=== PATIENT | female | born 1985 | race Caucasian/White ===

== ENCOUNTER 2018-06-17 09:43 | Emergency (ER) | payer OTHER ==
[2018-06-17 10:12] VITALS: O2SAT 97
[2018-06-17] MEDS ORDERED: BENADRYL 50 MG/ML IV ONE (10:19)
[2018-06-17] MEDS ORDERED: Reglan 10 MG/2 ML IV ONE (10:19)
--- NOTE | 2018-06-17 10:26 | ERPHSYRPT ---
- History of Present Illness Time Seen by Provider: 06/17/18 10:14 Source: patient Exam Limitations: no limitations Patient Subjective Stated Complaint: headache for one week. hx migraines but states this pain is different. states is a pressure pain in the back of her head that radiates down neck. Triage Nursing Assessment: ambulated to room per self. skin w/d, color normal, resp nonlabored. lights off in room for patient comfort. Physician History: 33-year-old white female with history of migraines, rheumatoid arthritis, arrives with complaint of a headache symptoms for one week headache behind her eyes and the posterior head. Patient apparently has been seen by local eye clinic in [place], she was also seen by Dr. Aguilar in [place] (yard caller) She states that she was scheduled with a neurologist and set up for an MRI for next Wednesday. She states she was nauseous patient not having any nausea states had a fever at home. Past medical history includes migraines, rheumatoid arthritis Past surgical history includes hysterectomy and tubal ligation Patient chronically takes hydrocodone inspect report shows hydrocodone 7.5/325 # 30 prescribed regularly by in [place], Patient's family doctor is in [place]. Timing/Duration: week(s) (1 week) Severity: moderate Modifying Factors: Improves With: nothing Associated Symptoms: fever (states she had a fever at home), headaches, No nausea, No vomiting, No abdominal pain, No shortness of breath, No heartburn, No diaphoresis, No cough, No chills, No chest pain, No loss of appetite, No malaise, No rash, No syncope, No seizure (She see ying huizar), No weakness Allergies/Adverse Reactions: valacyclovir HCl [From Valtrex] Allergy (Verified 06/17/18 10:13) Home Medications: Hydrocodone/APAP 7.5/750 [Vicodin Es] 1 udtab PO Q4-6HPRN PRN 04/17/12 [History] Gabapentin 300 mg PO TID 06/17/18 [History] Meloxicam 7.5 mg [Mobic 7.5 MG] 7.5 mg PO DAILY 06/17/18 [History] Ondansetron 8 mg Odt [Ondansetron Odt 8 mg] 8 mg PO TIDPRN 06/17/18 [ History] Hx Tetanus, Diphtheria Vaccination/Date Given: No (UP TO DATE) Hx Influenza Vaccination/Date Given: No Hx Pneumococcal Vaccination/Date Given: No - Review of Systems Constitutional: Fever (patient states fever at home), No Chills, No Fatigue, No Lethargy, No Malaise, No Night Sweats, No Weakness, No Weight Loss Eyes: Photophobia, No Discharge, No Eye Pain, No Eye Redness, No Itchy, No Tearing, No Vision Changes, No Double Vision (she does have electrolyt), No Foreign Body Sensation Ears, Nose, & Throat: No Symptoms Respiratory: No Cough, No Dyspnea Cardiac: No Chest Pain, No Edema, No Syncope Abdominal/Gastrointestinal: No Abdominal Pain, No Nausea, No Vomiting, No Diarrhea Genitourinary Symptoms: No Dysuria Musculoskeletal: No Back Pain, No Neck Pain Skin: No Symptoms, No Rash Neurological: Headache, No Dizziness, No Focal Weakness, No Gait Changes, No Irritability, No Lethargy, No Paralysis, No Parasthesia Psychological: No Symptoms Endocrine: No Symptoms All Other Systems: Reviewed and Negative - Past Medical History Pertinent Past Medical History: Yes Neurological History: Migraines ENT History: Other Musculoskeletal History: Rheumatoid Arthritis - Past Surgical History Past Surgical History: Yes Gastrointestinal: Cholecystectomy Female Surgical History: Hysterectomy, Tubal Ligation, Other - Social History Smoking Status: Never smoker How long have you smoked: 2 Exposure to second hand smoke: Yes Drug Use: none Patient Lives Alone: No - Female History Hx Now: No - Nursing Vital Signs Nursing Vital Signs: Initial Vital Signs Temperature 98.5 F 06/17/18 09:54 Pulse Rate 90 06/17/18 09:54 Respiratory Rate 16 06/17/18 09:54 Blood Pressure 137/90 06/17/18 09:54 O2 Sat by Pulse Oximetry 97 06/17/18 09:54 Pain Scale Pain Intensity 7 - Physical Exam General Appearance: mild distress, alert Eye Exam: PERRL/EOMI, eyes nml inspection, photophobia, other (fundi are unremarkable) Ears, Nose, Throat Exam: normal ENT inspection, TMs normal, pharynx normal, moist mucous membranes Neck Exam: normal inspection, non-tender, supple, full range of motion Respiratory Exam: normal breath sounds, lungs clear, No respiratory distress Cardiovascular Exam: regular rate/rhythm, normal heart sounds, normal peripheral pulses, capillary refill <2 sec Gastrointestinal/Abdomen Exam: soft, normal bowel sounds, No tenderness, No mass Back Exam: normal inspection, normal range of motion, No CVA tenderness, No vertebral tenderness Extremity Exam: normal inspection, normal range of motion, pelvis stable Neurologic Exam: alert, oriented x 3, cooperative, radio installer automobile II-XII nml as tested, normal mood/affect, nml cerebellar function, nml station & gait, sensation nml, No motor deficits Skin Exam: normal color, warm, dry, No rash Lymphatic Exam: No adenopathy SpO2 Interpretation: normal (97%) SpO2: 97 Oxygen Delivery: Room Air - Course Nursing assessment & vital signs reviewed: Yes - CT Exams Head CT Interpretation: Discussed w/radiologist (stable normal CT head without contrast exam) Ordered Tests: Active Orders 24 hr Category Date Time Status IV Insertion STAT Care 06/17/18 10:19 Active HEAD WITHOUT CONTRAST [CT] Stat Exams 06/17/18 10:20 Completed CBC W DIFF Stat Lab 06/17/18 10:35 Completed CMP Stat Lab 06/17/18 10:35 Completed Erythrocyte Sedimentation Rate Stat Lab 06/17/18 10:35 Completed Medication Summary Generic Name Dose Route Start Last Admin Trade Name Freq PRN Reason Stop Dose Admin Sodium Chloride 1,000 mls @ 100 mls/hr 06/17/18 10:30 06/17/18 10:45 Sodium Chloride 0.9% 1000 Ml IV 07/17/18 10:29 100 mls/hr .Q10H THOMAS Administration Discontinued Medications Generic Name Dose Route Start Last Admin Trade Name Freq PRN Reason Stop Dose Admin Diphenhydramine HCl 25 mg 06/17/18 10:19 06/17/18 10:45 Benadryl 50 Mg/Ml IV 06/17/18 10:20 25 mg STAT ONE Administration Diphenhydramine HCl Confirm 06/17/18 10:40 Benadryl 50 Mg/Ml Administered 06/17/18 10:41 Dose 50 mg .ROUTE .STK-MED ONE Metoclopramide HCl 10 mg 06/17/18 10:19 06/17/18 10:45 Reglan 10 Mg/2 Ml IV 06/17/18 10:20 10 mg STAT ONE Administration Metoclopramide HCl Confirm 06/17/18 10:41 Reglan 10 Mg/2 Ml Administered 06/17/18 10:42 Dose 10 mg .ROUTE .STK-MED ONE Lab/Rad Data: Laboratory Result Diagrams 06/17/18 10:35 06/17/18 10:35 Laboratory Results 06/17/18 06/17/18 Range/Units 10:35 10:35 WBC 3.9 L (4.0-10.5) K/mm3 RBC 5.24 (4.1-5.4) M/mm3 Hgb 15.0 (12.0-16.0) gm/dl Hct 46.6 (35-47) % MCV 88.9 (78-100) fl MCH 28.6 (26-32) pg MCHC 32.2 (32-36) g/dl RDW 13.0 (11.5-14.0) % Plt Count 189 (150-450) K/mm3 MPV 10.4 H (6-9.5) fl Gran % 72.2 H (36.0-66.0) % Eos # (Auto) 0 (0-0.5) Absolute Lymphs (auto) 0.66 L (1.0-4.6) Absolute Monos (auto) 0.42 (0.0-1.3) Lymphocytes % 16.8 L (24.0-44.0) % Monocytes % 10.7 (0.0-12.0) % Eosinophils % 0.0 (0.00-5.0) % Basophils % 0.3 (0.0-0.4) % Absolute Granulocytes 2.84 (1.4-6.9) Basophils # 0.01 (0-0.4) ESR 24 H (0-20) mm/hr Sodium 141 (137-145) mmol/L Potassium 4.0 (3.5-5.1) mmol/L Chloride 105 (98-107) mmol/L Carbon Dioxide 28 (22-30) mmol/L Anion Gap 12.0 (5-15) MEQ/L BUN 8 (7-17) mg/dL Creatinine 0.65 (0.52-1.04) mg/dL Estimated GFR > 60.0 ML/MIN Glucose 100 (74-106) mg/dL Calcium 9.2 (8.4-10.2) mg/dL Total Bilirubin 0.50 (0.2-1.3) mg/dL AST 24 (14-36) U/L ALT 22 (0-35) U/L Alkaline Phosphatase 97 (38-126) U/L Serum Total Protein 7.7 (6.3-8.2) g/dL Albumin 4.4 (3.5-5.0) g/dL - Progress Progress: improved Progress Note: 06/17/18 10:26 33-year-old white female with history of migraines arrives with complaint of a headache for a week Patient apparently has been seen by an eye clinic in [facility], she has also been seen by an yard caller in [facility] for the same complaint apparently he had noticed papilledema and had arranged for her to have a MRI on Wednesday as well as a neurology consult. Patient continues to complain of pain she does receive chronic prescription of hydrocodone 7.5/325 from a physician in [facility]. We'll go ahead and obtain CBC CMP and sedimentation rate head CT. Will go ahead and give patient Reglan 10 mg Benadryl 25 mg IV and normal saline at 100 mL per hour. . 06/17/18 11:25 Patient feeling better after IV Benadryl, Reglan and normal saline. Not completely pain-free but feels much better think she can go home. Patient's CBC is normal CMP normal head CT normal. Sedimentation rate slightly elevated at 24. Normal is 20 Patient afebrile vitals are stable. Will discharge patient. Patient has an appointment for a MRI Wednesday she has an appointment for neurologist. Will discharge. - Departure Time of Disposition: 11:27 Departure Disposition: Home Clinical Impression: Migraine headache Qualifiers: Migraine type: unspecified Status migrainosus presence: without status migrainosus Intractability: not intractable Qualified Code(s): G43.909 - Migraine, unspecified, not intractable, without status migrainosus Condition: Fair Critical Care Time: No Referrals: ISIDORO MARTE PA [Primary Care Provider] - Instructions: Headache, Adult (DC) Additional Instructions: Return home. Rest in a dark quiet room. Medications as prescribed by your family doctor and/or rip saw operator. Follow-up with MRI and neurologist as previously arranged. Return for acute distress or for severe symptoms.
[2018-06-17] MEDS ORDERED: Sodium Chloride 0.9% 1000 ML 1,000 ML IV SCH (10:30)
[2018-06-17] MEDS ORDERED: BENADRYL 50 MG/ML ONE (10:40)
[2018-06-17] MEDS ORDERED: Reglan 10 MG/2 ML ONE (10:41)
[2018-06-17] MEDS ORDERED: Sodium Chloride 0.9% 1000 ML 1,000 ML ONE (10:41)
[2018-06-17 10:53] LABS: BASOPHIL % 0.3 % (0.0-0.4); Basophil (Absolute #) 0.01 (0-0.4); Eosinophil (Absolute #) 0 (0-0.5); Granulocytes % 72.2 % (36.0-66.0); Hematocrit 46.6 % (35-47); Lymphocyte (Absolute #) 0.66 (1.0-4.6); Lymphocytes % 16.8 % (24.0-44.0); Mean Cell Volume 88.9 fl (78-100); Mean Corpuscular Hemoglobin 28.6 pg (26-32); Mean Corpuscular Hgb Concent. 32.2 g/dl (32-36); Mean Platelet Volume 10.4 fl (6-9.5); Monocyte (Absolute #) 0.42 (0.0-1.3); Monocytes % 10.7 % (0.0-12.0); Platelet Count 189 K/mm3 (150-450); Red Blood Count 5.24 M/mm3 (4.1-5.4); White Blood Count 3.9 K/mm3 (4.0-10.5)
--- NOTE | 2018-06-17 11:06 | XRAY ---
Indication: Headache 1 week. Multiple contiguous axial images obtained through the head without contrast. Comparison: July 28, 2010. Again normal appearing brain parenchyma, ventricles, and bony calvarium. Visualized paranasal sinuses and mastoid air cells are clear. Impression: Stable normal CT head without contrast exam. CT DI 70.10
[2018-06-17 11:08] LABS: ALBUMIN 4.4 g/dL (3.5-5.0); ALKALINE PHOSPHATASE 97 U/L (38-126); BLOOD UREA NITROGEN 8 mg/dL (7-17); CHLORIDE 105 mmol/L (98-107); Calcium 9.2 mg/dL (8.4-10.2); Carbon Dioxide 28 mmol/L (22-30); Creatinine 1 0.65 mg/dL (0.52-1.04); Glucose 100 mg/dL (74-106); SGOT/AST 24 U/L (14-36); SGPT/ALT 22 U/L (0-35); SODIUM 141 mmol/L (137-145); Total Protein 7.7 g/dL (6.3-8.2)
[2018-06-17 11:22] LABS: Erythrocyte Sedimentation Rate 24 mm/hr (0-20)
[2018-06-17 11:46] VITALS: BP 109/66; PULSE 93
== END 2018-06-17 11:47 | disposition home or self-care (01) ==
LOC: ED 09:43
DX: G43.909 Migraine, unspecified, not intractable, without status migrainosus (principal); M06.9 Rheumatoid arthritis, unspecified
CPT/HCPCS: 36000; 36415; 70450; 80053; 85025; 85652; 96360; 96374; 96375; 99284; J1200

== ENCOUNTER 2021-12-04 09:02 | Day surgery (SDC) | payer OTHER ==
--- NOTE | 2021-12-03 14:06 | HP ---
DATE OF SURGERY: 12/04/2021 HISTORY OF PRESENT ILLNESS: The patient is a 36-year-old female who presented with complaints of rectal bleeding. The patient has been having some constipation and loose stools the past six weeks. She also complains of epigastric pain that radiates out bilaterally. She said it is worse in the right upper quadrant. She had a CT scan recently. She said she was constipated. She has not had any colonoscopy to date. She did say that the bright red bleeding from the rectum is heavy at times. PAST MEDICAL HISTORY: Hypertension, rheumatoid arthritis, anxiety, depression, intracranial hypertension, pseudotumor cerebri. PAST SURGICAL HISTORY: Cholecystectomy. Tonsillectomy. Hysterectomy. ALLERGIES: VALACYCLOVIR. MEDICATIONS: Trokendi, Nurtec, Linzess, [place], Ambien, oxaprozin, Prozac, hydroxyzine. FAMILY HISTORY: Diabetes. Hypertension. Heart disease. SOCIAL HISTORY: Former smoker. REVIEW OF SYSTEMS: CONSTITUTIONAL: Denies fever or chills. CHEST: Denies shortness of breath. CVS: Denies chest pain. ABDOMEN: Reports abdominal pain. Denies nausea, vomiting. Report diarrhea, constipation and rectal bleeding. PHYSICAL EXAMINATION: GENERAL: No acute distress. CHEST: Nonlabored. No shortness of breath. CVS: Regular rate and rhythm. ABDOMEN: Soft, nontender. IMPRESSION: Epigastric pain, bright red rectal bleeding and change in bowel habits. PLAN: EGD and colonoscopy with Dr. Robbin Deal. As dictated by Kia Salinas NP.
[2021-12-04] MEDS ORDERED: Lactated Ringers 1,000 ML IV ONE (09:31)
[2021-12-04] MEDS ORDERED: Lactated Ringers 1,000 ML IV SCH (10:00)
[2021-12-04] MEDS ORDERED: DIPRIVAN 200 MG/20 ML IV ONE ×3 (10:58→11:14)
[2021-12-04] MEDS ORDERED: Versed 2 MG/2 ML Injection ONE (10:58)
[2021-12-04 12:17] VITALS: BP 117/71; PULSE 77; O2SAT 98
--- NOTE | 2021-12-04 14:49 | OP ---
SURGERY DATE/TIME: 12/04/2021 1100 PREOPERATIVE DIAGNOSES: 1) Epigastric pain, history of reflux. 2) Blood per rectum, change in bowel habits. POSTOPERATIVE DIAGNOSES: 1) Grade 2 over 4 gastroesophageal reflux disease. 2) Mild internal and external hemorrhoids. PROCEDURES: 1) EGD complete. 2) Colonoscopy complete to cecum. SURGEON: Robbin Deal M.D. ANESTHESIA: MAC. COMPLICATIONS: None. CONDITION: Stable. INDICATION: A patient requiring evaluation. DESCRIPTION OF PROCEDURE: Taken to endoscopy. MAC sedation provided. Scope introduced. Pharyngoesophageal junction was normal. Esophagus normal down to gastroesophageal junction. A rim of esophagitis grade 2 over 4. The fundus, body and antrum normal. Pylorus normal. Duodenal bulb normal. Second portion normal. The scope was withdrawn looped upon itself normal. No hiatal hernia. Scope withdrawn. Anal digital examination satisfactory. Scope advanced to the cecum. Prep score was excellent. Ileocecal valve and appendiceal orifice normal. Ascending, hepatic, transverse, splenic, descending, sigmoid, rectum and anus. There was mild internal and external hemorrhoids. The scope was readvanced back up to the ileocecal valve and then gas was suctioned out on the second pass. The patient tolerated the procedure satisfactorily. Findings discussed with the daughter in the waiting room.
== END 2021-12-04 12:10 | disposition home or self-care (01) ==
LOC: SDC 09:02
PROVIDERS: ATTEND Surgery
DX: K21.9 Gastro-esophageal reflux disease without esophagitis (principal); R10.13 Epigastric pain; Z87.19 Personal history of other diseases of the digestive system; K92.1 Melena; R19.4 Change in bowel habit; K64.4 Residual hemorrhoidal skin tags; K64.8 Other hemorrhoids
CPT/HCPCS: J2250; J2704